=== PATIENT | female | born 1995 | race Two or more races ===

== ENCOUNTER → 2017-01-04 | Outpatient (CLI) | payer BC, OTHER ==
[~2017-01-04] MED LIST: No meds per pt.
== END | disposition home or self-care (01) ==
LOC: STAR 09:24
PROVIDERS: ATTEND Otolaryngology
DX: Z02.9 Encounter for administrative examinations, unspecified (principal)

== ENCOUNTER 2017-01-11 05:35 | Day surgery (SDC) | payer BC, OTHER ==
[2017-01-04 09:50] VITALS: BP 122/82
[~2017-01-11] VITALS: Ht 165.1 cm; Wt 58.0 kg
[2017-01-11] MEDS ORDERED: LIDOCAINE 1%, 2ML ONE (06:07)
[2017-01-11] MEDS ORDERED: LACTATED RINGERS 1,000 ML IV SCH (06:34)
[2017-01-11] MEDS ORDERED: OXYMETAZOLINE NASAL SPRAY 0.05%, 15ML ONE (07:00)
[2017-01-11] MEDS ORDERED: LIDOCAINE 1%, 2ML SQ PRN (07:00)
[2017-01-11] MEDS ORDERED: NEO/BACI/POLY/HC OINT 15GM ONE (07:00)
[2017-01-11] MEDS ORDERED: LIDOCAINE/PF 1%-EPI 1:200K, 30ML ONE (07:00)
[2017-01-11] MEDS ORDERED: BUPIVACAINE/PF-EPI 0.25% 1:200K ONE (07:05)
[2017-01-11] MEDS ORDERED: FENTANYL PF 100 MCG/2ML ONE ×3 (07:09→08:13)
[2017-01-11 07:12] LABS: HCG UR OBC PASS
[2017-01-11] MEDS ORDERED: SUCCINYLCHOLINE 20 MG/ML, 10ML ONE (07:12)
[2017-01-11] MEDS ORDERED: ONDANSETRON 2MG/ML, 2ML ONE (07:12)
[2017-01-11] MEDS ORDERED: METOCLOPRAMIDE 5 MG/ML, 2ML ONE (07:12)
[2017-01-11] MEDS ORDERED: PROPOFOL 10 MG/ML, 20ML ONE (07:12)
[2017-01-11] MEDS ORDERED: ROCURONIUM 10 MG/ML ONE (07:12)
[2017-01-11] MEDS ORDERED: DEXAMETHASONE 4 MG/ML, 1ML ONE (07:12)
[2017-01-11] MEDS ORDERED: OXYcodone 5 MG/5 ML ORAL.SOL UDC ONE (07:59)
[2017-01-11] MEDS ORDERED: HYDROmorphone 1 MG/ML, 1ML IV PRN (08:00)
[2017-01-11] MEDS ORDERED: ONDANSETRON 2MG/ML, 2ML IVPush PRN (08:00)
[2017-01-11] MEDS ORDERED: OXYcodone 5 MG/5 ML ORAL.SOL UDC PO PRN (08:00)
[2017-01-11] MEDS ORDERED: MIDAZOLAM 1 MG/ML, 2ML IV PRN (08:00)
[2017-01-11] MEDS ORDERED: MEPERIDINE/PF 25MG/0.5ML IVPush PRN (08:00)
[2017-01-11] MEDS: FENTANYL PF 100 MCG/2ML IV PRN ×4 (08:01→08:23)
[2017-01-11] MEDS ORDERED: ONDANSETRON ODT 4 MG PO ONE (10:00)
[2017-01-11] MEDS ORDERED: ONDANSETRON ODT 4 MG ONE (10:04)
== END 2017-01-11 12:25 | disposition home or self-care (01) ==
LOC: OUT 05:35
PROVIDERS: ATTEND Otolaryngology
DX: J35.3 Hypertrophy of tonsils with hypertrophy of adenoids (principal)
CPT/HCPCS: 42821; 81025; 88300; J0330; J1100; J2405; J2704; J2765; J3010; J3490; J7120; Q0162

== ENCOUNTER 2018-11-27 19:22 | Outpatient (CLI) | payer OTHER, MEDICAID ==
[~2018-11-27] VITALS: Ht 165.1 cm; Wt 63.2 kg
[2018-11-27 19:39] VITALS: BP 121/65
[2018-11-27] MEDS ORDERED: PREN1TAB60 PO (19:51)
[2018-11-27 19:52] LABS: MICROSCOPIC AUTO
== END 2018-11-27 20:20 | disposition home or self-care (01) ==
LOC: LDOP 19:22
PROVIDERS: ATTEND Student in an Organized Health Care Education/Training Program
DX: O26.892 Other specified pregnancy related conditions, second trimester (principal); R10.9 Unspecified abdominal pain; R19.7 Diarrhea, unspecified; O21.2 Late vomiting of pregnancy; Z3A.21 21 weeks gestation of pregnancy
CPT/HCPCS: 59025; 81001; 87086; 99211; G0463

== ENCOUNTER 2018-12-13 15:14 | Outpatient (CLI) | payer MEDICAID ==
[~2018-12-13] VITALS: Ht 165.1 cm; Wt 66.3 kg
[~2018-12-13 15:14] MED LIST changes: +PREN1TAB60 PO
[2018-12-13 15:23] VITALS: BP 101/71
[2018-12-13 16:57] LABS: BASOPHILS # (AUTO) 0.02 x10^3/uL (0-0.1); BASOPHILS % (AUTO) 0 % (0-1); EOSINOPHILS # (AUTO) 0.08 x10^3/uL (0-0.4); EOSINOPHILS % (AUTO) 1 % (1-7); LYMPHOCYTES # (AUTO) 1.87 x10^3/uL (1-3.4); LYMPHOCYTES % (AUTO) 16 % (22-44); MD NO; MEAN CORPUSCULAR HEMOGLOBIN 30.3 pg (27.0-34.8); MEAN CORPUSCULAR HGB CONC 33.8 g/dL (32.4-35.8); MEAN CORPUSCULAR VOLUME 89.6 fL (80-100); MEAN PLATELET VOLUME 7.8 fL (7.4-10.4); MONOCYTES # (AUTO) 0.72 x10^3/uL (0.2-0.8); MONOCYTES % (AUTO) 6 % (2-9); NEUTROPHILS # (AUTO) 8.95 x10^3/uL (1.8-6.8); NEUTROPHILS % (AUTO) 77 % (42-75); PLATELET COUNT 352 x10^3/uL (130-400); RED BLOOD COUNT 3.77 x10^6/uL (3.82-5.3); RED CELL DISTRIBUTION WIDTH 12.7 % (9.6-15.2)
[2018-12-13 17:05] LABS: ALANINE AMINOTRANSFERASE 19 U/L (12-78); ALBUMIN 2.8 g/dL (3.4-5.0); ANION GAP 7 mmol/L (5-15); CALCIUM 9.2 mg/dL (8.5-10.1); CHLORIDE 110 mmol/L (98-107); CREATININE 0.48 mg/dL (0.55-1.02)
[2018-12-13 17:08] LABS: ALKALINE PHOSPHATASE 96 U/L (45-117); BILIRUBIN,TOTAL 0.2 mg/dL (0.2-1.0); TOTAL PROTEIN 6.6 g/dL (6.4-8.2)
== END 2018-12-13 20:03 | disposition home or self-care (01) ==
LOC: LDOP 15:14
PROVIDERS: ATTEND Student in an Organized Health Care Education/Training Program
DX: O26.893 Other specified pregnancy related conditions, third trimester (principal); R51 Headache; Z3A.28 28 weeks gestation of pregnancy
CPT/HCPCS: 36415; 59025; 76815; 76819; 80053; 85025; 93005; 99211; G0463

== ENCOUNTER 2019-03-03 13:14 | Inpatient (IN) | payer OTHER, MEDICAID ==
[~2019-03-03] VITALS: Ht 165.1 cm; Wt 73.6 kg
[2019-03-03] MEDS ORDERED: NEWBORN KIT ONE (22:24)
[2019-03-03] MEDS ORDERED: MISOPROSTOL 200 MCG TABLET ONE (22:25)
[2019-03-03] MEDS ORDERED: OXYTOCIN 30U/ 0.9% NaCL 500ML 500 ML ONE (22:25)
[2019-03-03] MEDS ORDERED: LIDOCAINE 1%, 20ML ONE (22:25)
[2019-03-03] MEDS: LACTATED RINGERS 1,000 ML IV SCH ×2 (22:40→23:40)
[2019-03-03] MEDS: D5%-LACTATED RINGERS 1,000 ML IV SCH (22:52)
[2019-03-03] MEDS ORDERED: OXYTOCIN 30U/ 0.9% NaCL 500ML 500 ML IV PRN (22:52)
[2019-03-03] MEDS ORDERED: OXYTOCIN 30U/ 0.9% NaCL 500ML 500 ML IV ONE (22:52)
[2019-03-03] MEDS ORDERED: MISOPROSTOL 25 MCG TABLET VG PRN (23:00)
[2019-03-03] MEDS ORDERED: ONDANSETRON 2MG/ML, 2ML IVPush PRN (23:00)
[2019-03-03] MEDS ORDERED: TERBUTALINE 1 MG/ML, 1ML IVPush PRN ×2 (23:00)
[2019-03-03] MEDS ORDERED: FENTANYL PF 100 MCG/2ML IV PRN (23:00)
[2019-03-03 23:23] LABS: BASOPHILS # (AUTO) 0.05 x10^3/uL (0-0.1); BASOPHILS % (AUTO) 0 % (0-1); EOSINOPHILS # (AUTO) 0.04 x10^3/uL (0-0.4); EOSINOPHILS % (AUTO) 0 % (1-7); LYMPHOCYTES # (AUTO) 2.37 x10^3/uL (1-3.4); LYMPHOCYTES % (AUTO) 20 % (22-44); MD NO; MEAN CORPUSCULAR HEMOGLOBIN 27.7 pg (27.0-34.8); MEAN CORPUSCULAR HGB CONC 32.5 g/dL (32.4-35.8); MEAN CORPUSCULAR VOLUME 85.1 fL (80-100); MEAN PLATELET VOLUME 8.5 fL (7.4-10.4); MONOCYTES # (AUTO) 0.88 x10^3/uL (0.2-0.8); MONOCYTES % (AUTO) 8 % (2-9); NEUTROPHILS # (AUTO) 8.27 x10^3/uL (1.8-6.8); NEUTROPHILS % (AUTO) 71 % (42-75); PLATELET COUNT 317 x10^3/uL (130-400); RED BLOOD COUNT 3.71 x10^6/uL (3.82-5.3); RED CELL DISTRIBUTION WIDTH 15.6 % (9.6-15.2)
[2019-03-04] MEDS ORDERED: FENTANYL PF 100 MCG/2ML ONE ×3 (05:51→09:00)
[2019-03-04] MEDS: FENTANYL PF 100 MCG/2ML IVPush PRN ×3 (05:54→09:08)
[2019-03-04] MEDS: LACTATED RINGERS 1,000 ML IV SCH (06:38)
[2019-03-04] MEDS: D5%-LACTATED RINGERS 1,000 ML IV SCH ×2 (06:52→14:52)
[2019-03-04] MEDS ORDERED: ONDANSETRON 2MG/ML, 2ML ONE (09:01)
[2019-03-04] MEDS ORDERED: BUPIVACAINE 0.25% ONE (12:18)
[2019-03-04] MEDS ORDERED: FENTANYL/BUPIV./NS/PF 250 ML EPIDCONT ONE (12:21)
[2019-03-04] MEDS ORDERED: LACTATED RINGERS 1,000 ML IV SCH (12:36)
[2019-03-04] MEDS ORDERED: FENTANYL/BUPIV./NS/PF 250 ML EPIDCONT SCH (12:36)
[2019-03-04] MEDS ORDERED: EPHEDRINE 50 MG/ML, 1ML IVPush PRN (13:00)
[2019-03-04] MEDS ORDERED: LACTATED RINGERS 1,000 ML IVBOLUS PRN (13:00)
[2019-03-04] MEDS: OXYTOCIN 30U/ 0.9% NaCL 500ML 500 ML IV SCH (15:13)
[2019-03-04] MEDS ORDERED: METHYLERGONOVINE 0.2 MG/ML IM PRN (15:30)
[2019-03-04] MEDS ORDERED: METOCLOPRAMIDE 5 MG/ML, 2ML IV PRN (15:30)
[2019-03-04] MEDS ORDERED: ACETAMINOPHEN 325 MG TABLET PO PRN (15:30)
[2019-03-04] MEDS ORDERED: MISOPROSTOL 200 MCG TABLET PR PRN (15:30)
[2019-03-04] MEDS ORDERED: OXYcodone/APAP 5/325MG TABLET PO PRN ×2 (15:30)
[2019-03-04] MEDS ORDERED: GLYCERIN ADULT SUPP PR PRN (15:30)
[2019-03-04] MEDS ORDERED: CARBOPROST TROMETHAMINE 250 MCG/ML, 1ML IM PRN (15:30)
[2019-03-04] MEDS ORDERED: ONDANSETRON 2MG/ML, 2ML IV PRN (15:30)
[2019-03-04] MEDS ORDERED: BISACODYL 10 MG SUPP PR PRN (15:30)
[2019-03-04] MEDS ORDERED: IBUPROFEN 600 MG TABLET ONE (15:39)
[2019-03-04] MEDS: IBUPROFEN 600 MG TABLET PO PRN ×2 (15:41→21:39)
[2019-03-04 17:40] VITALS: BP 104/68
[2019-03-04 19:33] VITALS: BP 112/72
[2019-03-04] MEDS: DOCUSATE 100 MG CAPSULE PO PRN (21:39)
[2019-03-04 23:18] LABS: MEAN CORPUSCULAR HEMOGLOBIN 27.7 pg (27.0-34.8); MEAN CORPUSCULAR HGB CONC 32.3 g/dL (32.4-35.8); MEAN CORPUSCULAR VOLUME 85.6 fL (80-100); MEAN PLATELET VOLUME 8.8 fL (7.4-10.4); PLATELET COUNT 281 x10^3/uL (130-400); RED BLOOD COUNT 3.23 x10^6/uL (3.82-5.3); RED CELL DISTRIBUTION WIDTH 15.9 % (9.6-15.2)
[2019-03-05] VITALS: BP 123/81
[2019-03-05 00:07] LABS: BASOPHILS # (AUTO) 0.05 x10^3/uL (0-0.1); BASOPHILS % (AUTO) 0 % (0-1); EOSINOPHILS # (AUTO) 0.28 x10^3/uL (0-0.4); EOSINOPHILS % (AUTO) 2 % (1-7); LYMPHOCYTES % (AUTO) 11 % (22-44); MD SCAN; MONOCYTES % (AUTO) 8 % (2-9); NEUTROPHILS # (AUTO) 14.89 x10^3/uL (1.8-6.8); NEUTROPHILS % (AUTO) 80 % (42-75)
[2019-03-05] MEDS: OXYTOCIN 30U/ 0.9% NaCL 500ML 500 ML IV SCH ×2 (01:13→11:13)
[2019-03-05] MEDS: IBUPROFEN 600 MG TABLET PO PRN ×2 (03:22→09:45)
[2019-03-05 03:30] VITALS: BP 119/76
[2019-03-05 08:00] VITALS: BP 127/78
[2019-03-05] MEDS ORDERED: FERROUS SULFATE 325 MG TABLET PO SCH (08:00)
[2019-03-05] MEDS: DOCUSATE 100 MG CAPSULE PO PRN (08:08)
[2019-03-05] MEDS ORDERED: PRENATAL VIT/IRON/FA 1 EACH TABLET PO SCH (09:00)
[2019-03-05] MEDS ORDERED: IBUP-1222 PO (10:13)
[2019-03-05] MEDS ORDERED: FERR325T23 PO (10:14)
[2019-03-05 12:30] VITALS: BP 125/88
== END 2019-03-05 15:05 | disposition home or self-care (01) | DRG 806 ==
LOC: LDIP 22:18 → 2NW 03-04 17:22
PROVIDERS: ADMIT Student in an Organized Health Care Education/Training Program; ATTEND Student in an Organized Health Care Education/Training Program
PROC: 10E0XZZ Delivery of Products of Conception, External Approach (ICD-10-PCS; principal; 2019-03-04)
PROC: 0KQM0ZZ Repair Perineum Muscle, Open Approach (ICD-10-PCS; 2019-03-04)
PROC: 0UQMXZZ Repair Vulva, External Approach (ICD-10-PCS; 2019-03-04)
PROC: 3E033VJ Introduction of Other Hormone into Peripheral Vein, Percutaneous Approach (ICD-10-PCS; 2019-03-04)
PROC: 3E0R3BZ Introduction of Anesthetic Agent into Spinal Canal, Percutaneous Approach (ICD-10-PCS; 2019-03-04)
PROC: 00HU33Z Insertion of Infusion Device into Spinal Canal, Percutaneous Approach (ICD-10-PCS; 2019-03-04)
DX: O48.0 Post-term pregnancy (principal); D62 Acute posthemorrhagic anemia; Z37.0 Single live birth; O69.1XX0 Labor and delivery complicated by cord around neck, with compression, not applicable or unspecified; O90.81 Anemia of the puerperium; O70.1 Second degree perineal laceration during delivery; Z3A.40 40 weeks gestation of pregnancy; Z82.3 Family history of stroke; Z83.3 Family history of diabetes mellitus
CPT/HCPCS: 36415; 85025; 86850; 86900; G0378; J2405; J3010; J2590; J7120